=== PATIENT | female | born 1950 | race Caucasian/White ===

== ENCOUNTER 2021-01-31 07:34 | Emergency (ER) | payer OTHER ==
[~2021-01-31] VITALS: Ht 170.2 cm; Wt 72.6 kg
[2021-01-31 08:27] VITALS: BP 149/81
[2021-01-31] MEDS ORDERED: traMADol HCL 50 MG TAB PO ONE (10:45)
[2021-01-31] MEDS ORDERED: methylPREDNISolone SOD SUCC 125 MG/2 ML VL ONE (11:07)
[2021-01-31] MEDS ORDERED: methylPREDNISolone SOD SUCC 125 MG/2 ML VL IM ONE (11:15)
== END 2021-01-31 11:30 | disposition home or self-care (01) ==
LOC: ER 07:34
DX: M16.12 Unilateral primary osteoarthritis, left hip (principal); M47.816 Spondylosis without myelopathy or radiculopathy, lumbar region; E78.5 Hyperlipidemia, unspecified; I10 Essential (primary) hypertension; Z90.89 Acquired absence of other organs; Z90.49 Acquired absence of other specified parts of digestive tract; Z98.51 Tubal ligation status; Z96.641 Presence of right artificial hip joint; W01.0XXA Fall on same level from slipping, tripping and stumbling without subsequent striking against object, initial encounter; Y93.89 Activity, other specified; Y92.89 Other specified places as the place of occurrence of the external cause; Y99.8 Other external cause status
CPT/HCPCS: 72100; 96372; 99283; J2930

== ENCOUNTER 2024-06-05 08:46 | Inpatient (IN) | payer OTHER ==
[~2024-06-05] VITALS: Ht 170.2 cm; Wt 67.2 kg
--- NOTE | 2024-06-05 10:24 | ECG ---
[facility] Test Date: 2024-06-05 Test Time: 08:58:25 Pat Name: LITZY MOREIRA Department: ER Room: [address] [place] [address] Gender: F Early Intervention Specialist: GP : [id number] Requested By: SOUMYA ALAS Order Number: [id number] Reading MD: Davian Fontana Measurements Intervals [place] Rate: 72 P: 37 FL: 126 QRS: 61 QRSD: 88 T: -50 QT: 420 QTc: 460 Interpretive Statements Sinus rhythm Atrial premature complexes Borderline repolarization abnormality Electronically Signed On 06-07-2024 10:25:20 PST by Davian Fontana Please click the below link to view image of tracing.
--- NOTE | 2024-06-05 10:40 | ED.PDOC ---
HPI (NEURO) HPI Comments 74y F who presents to the ED for chief complaint of dizziness. Pt states she has been having dizziness for the past 2 days. Pt states her symptoms 2 days ago after eating dinner and states she normally ambulates on her own but states she has been having multiple falls and has been unsteady on her feet. Pt states her symptoms went away at approx 0300 this AM but states they started back up this AM and pt came to the ED for further evaluation. Pt states she has had associated nausea and vomiting denies any associated diarrhea, fever, dysuria, chest pain, or shortness of breath. Pt denies any associated head injury or loss of consciousness in the past 2 days. Pt denies any other symptoms at this time. Chief Complaint: Dizziness Time Seen by MD: 10:36 Primary Care Provider: SURAJ Lopez Notes: Nurses Notes, Medications, Allergies (No allergies to medications) Information Source: Patient, Spouse Mode of Arrival: Ambulatory Severity: Moderate Dizziness/Weakness Severity: Unable to do activities Headache Severity: None Timing: Days Duration: Since onset Prehospital treatment: None Headache Location: Generalized Weakness Location: Generalized Onset: At rest Circumstances: Spontaneous Symptoms: Imbalance, Weakness History of: Hypertension Modifying factors: Nothing Associated Signs and Symptoms: Nausea, Vomiting Past Medical History PAST MEDICAL HISTORY: Arthritis, GERD, High Lipids, HTN Surgical History: Appendectomy, BTL, Cholecystectomy, Tubal Ligation Surgical History (Other): R hip, bilateral carpal tunnel, CERTIFIED FRAUD EXAMINER History: Denies all CERTIFIED FRAUD EXAMINER Hx Family History Family History: Family hx of DM Social History Smoker: Non-Smoker Alcohol: Occasionally Drugs: Denies Drug Use Lives In: Home Constitutional: denies: chills, diaphoresis, fatigue, fever, malaise, sweats, weakness, others EENTM: denies: blurred vision, double vision, ear bleeding, ear discharge, ear drainage, ear pain, ear ringing, eye pain, eye redness, hearing loss, mouth pain, mouth swelling, nasal discharge, nose bleeding, nose congestion, nose pain, photophobia, tearing, throat pain, throat swelling, voice changes, others Respiratory: denies: cough, hemoptysis, orthopnea, SOB at rest, shortness of breath, SOB with excertion, stridor, wheezing, others Cardiovascular: denies: chest pain, dizzy spells, diaphoresis, Dyspnea on exertion, edema, irregular heart beat, left arm pain, lightheadedness, palpitations, PND, syncope, others Gastrointestinal: denies: abdomen distended, abdominal pain, blood streaked bowels, constipated, diarrhea, dysphagia, difficulty swallowing, hematemesis, melena, nausea, poor appetite, poor fluid intake, rectal bleeding, rectal pain, vomiting, others Genitourinary: denies: abnormal vagina bleeding, burning, dyspareunia, dysuria, flank pain, frequency, hematuria, incontinence, pain, , vagina discharge, urgency, others Neurological: reports: dizziness, weakness; denies: fainting, headache, left sided numbness, left sided weakness, numbness, paresthesia, pre-existing deficit, right sided numbness, right sided weakness, seizure, speech problems, tingling, tremors, others Musculoskeletal: denies: back pain, gout, joint pain, joint swelling, muscle pain, muscle stiffness, neck pain, others Integumetry: denies: bruises, change in color, change in hair/nails, dryness, laceration, lesions, lumps, rash, wounds, others Allergic/Immunocompromised: denies: Difficulty Healing, Frequent Infections, Hives, Itching, others Hematologic/Lymphatic: denies: anemia, blood clots, easy bleeding, easy bruising, swollen glands, others Endocrine: denies: excessive hunger, excessive sweating, excessive thirst, excessive urination, flushing, intolerance to cold, intolerance to heat, unexplained weight gain, unexplained weight loss, others Psychiatric: denies: anxiety, bipolar disorder, depression, hopeless, panic disorder, schizophrenia, sleepless, suicidal, others All Other Systems: Reviewed and Negative Physical Exam General Appearance: Moderate Distress HEENT: Normal ENT Inspection, Pharynx Normal, TMs Normal Neck: Full Range of Motion, Non-Tender, Normal, Normal Inspection Respiratory: Chest Non-Tender, Lungs Clear, No Accessory Muscle Use, No Respiratory Distress, Normal Breath Sounds Cardiovascular: No Edema, No JVD, No Murmur, No Gallop, Normal Peripheral Pulses, Regular Rate/Rhythm Breast Exam: Deferred Gastrointestinal: No Organomegaly, Non Tender, No Pulsatile Mass, Normal Bowel Sounds, Soft Genitalia: Deferred Pelvic: Deferred Rectal: Deferred Extremities: No calf tenderness, Normal capillary refill, Normal inspection, Normal range of motion, Non-tender, No pedal edema Musculoskeletal : Apperance: Normal Neurologic: Alert, clin nurse spec II-XII nml as Tested, Motor Weakness, Normal Affect, Normal Mood, No Sensory Deficits Cerebellar Function: Ataxia Reflexes: Normal Skin: Dry, Normal Color, Warm Lymphatic: No Adenopathy EKG EKG : Pulse Rate (adult): 72 [place]: Normal Cardiac Rhythm: NSR Block: None Hypertrophy: None ST: Normal Was a procedure done? Was a procedure done?: No Differential Diagnosis (SZ) Seizure: N/A General Weakness: Anemia, CVA, Dehydration, Electrolyte imbalance, Encephalopathy, Hypoglycemia, TIA, Vertigo: central, Vertigo: peripheral, V estibular neuronitis Headache: Migraine, Closed Head Injury, Epidural Hemorrhage, Intracerebral Hemorrhage, Subarachnoid Hemorrhage, Sinusitis, Trigeminal Neuralgia X-Ray, Labs, Meds, VS Vital Signs Date Time Temp Pulse Resp B/P (MAP) Pulse Ox O2 Delivery O2 Flow Rate FiO2 06/05/24 10:40 72 06/05/24 10:39 98.0 64 16 148/61 (90) 98 98.0 06/05/24 10:39 64 16 98 Room Air 06/05/24 09:37 98.7 65 17 133/64 (87) 98 98.7 06/05/24 09:37 65 17 98 Room Air 06/05/24 08:58 72 06/05/24 08:50 97.6 66 16 155/71 (99) 100 Lab Test 06/05/24 10:59 06/05/24 10:31 06/05/24 08:58 06/05/24 08:57 Range/Units White Blood Count 5.7 4.4-10.8 10^3/uL Red Blood Count 4.49 4.0-5.20 10^6/uL Hemoglobin 14.1 12.2-16.2 g/dL Hematocrit 41.8 36.0-46.0 % Mean Corpuscular Volume 93.1 80.0-100.0 fL Mean Corpuscular Hemoglobin 31.4 28.0-32.0 pg Mean Corpuscular Hemoglobin Concent 33.8 32.0-36.0 g/dL Red Cell Distribution Width 14.0 11.8-14.3 % Platelet Count 293 140-450 10^3/uL Mean Platelet Volume 7.4 6.9-10.8 fL Neutrophils (%) (Auto) 66.1 37.0-80.0 % Lymphocytes (%) (Auto) 27.2 10.0-50.0 % Monocytes (%) (Auto) 5.8 0.0-12.0 % Eosinophils (%) (Auto) 0.3 0.0-7.0 % Basophils (%) (Auto) 0.6 0.0-2.0 % Neutrophils # (Auto) 3.7 1.6-8.6 10 ^3/uL Lymphocytes # (Auto) 1.5 0.4-5.4 10 ^3/uL Monocytes # (Auto) 0.3 0-1.3 10 ^3/uL Eosinophils # (Auto) 0 0-0.8 10 ^3/uL Basophils # (Auto) 0 0-0.2 10 ^3/uL Nucleated Red Blood Cells 0.0 % Sodium Level 142 136-145 mmol/L Potassium Level 4.3 3.5-5.1 mmol/L Chloride Level 108 H 98-107 mmol/L Carbon Dioxide Level 30 20-31 mmol/L Anion Gap 4 L 5-15 Blood Urea Nitrogen 13 9-23 mg/dL Creatinine 0.83 0.550-1.02 mg/dL Glomerular Filtration Rate Calc 74 >90 mL/min BUN/Creatinine Ratio 15.7 10.0-20.0 Serum Glucose 108 H 74-106 mg/dL Calcium Level 10.3 8.7-10.4 mg/dL SARS-CoV-2 Antigen (Rapid) Negative NEGATIVE Urine Color Colorless Yellow Urine Clarity Clear Clear Urine pH 6.5 5.0-9.0 Urine Specific [place] 1.011 1.001-1.035 Urine Protein Negative Negative Urine Ketones Negative Negative Urine Blood Negative Negative /uL Urine Nitrite Negative Negative Urine Bilirubin Negative Negative Urine Urobilinogen Normal Negative mg/dL Urine Leukocyte Esterase Negative Negative /uL Urine RBC 1 0 - 4 /hpf Urine WBC <1 0 - 5 /hpf Urine Squamous Epithelial Cells Few <5 /hpf Urine Bacteria None seen None Seen /hpf Urine Glucose Normal Normal mg/dL POC Glucose 102 70-106 mg/dl Current Medications Medications (Trade) Dose Ordered Sig/Cornelia Route Start Time Stop Time Status Last Admin Aspirin (Ecotrin Enteric Coated Tablet) 81 mg ONCE ONCE PO 06/05/24 14:15 06/05/24 14:22 DC 06/05/24 15:13 EXAM: CT HEAD WITHOUT CONTRAST IMPRESSION: 1. No acute intracranial process. IV Hep-Lock was established The patient was given aspirin 81 mg by mouth The urine test is negative infection The CBC is within normal limits The chemistry panel is within limits We contacted the hospitalist and he is admitting the patient at this time We have discussed the findings with the patient and her family member Images Reviewed?: Images reviewed and evaluated by me Time of 1ST Reevaluation: 11:10 Reevaluation 1ST: Unchanged Patient Education/Counseling: Diagnosis, Treatment, Prognosis Family Education/Counseling: Diagnosis, Treatment, Prognosis Additional Information I reviewed the following notes from patient's past medical encounters: The following tests were ordered, and results were reviewed by me: EKG x2 , CBC, UA, BMP, CT head without contrast, COVED test Additional Information was gathered from interviewing the following independent historians: spouse I reviewed and agreed with the following test results read by other providers: radiologist I discussed treatment and results with medical personnel and: none Departure 1 Departure Time of Disposition: 15:53 Impression: Primary Impression: Autonomic dysfunction Disposition: ADMITTED INPATIENT Admit to: Tele Condition: Fair Critical Care Note Critical Care Time?: Yes (45 min-critical care time only) Stability Stability form required: Yes Unstable for transfer: Telemetry monitoring (Telemetry monitoring required), ED Physician Assesment (Clinical assesment) Heart Score Heart Score: Heart Score Response (Comments) Value History N/A 0 EKG N/A 0 Age N/A 0 Risk Factors N/A 0 Troponin N/A 0 Total 0 I personally scribed for LALA KRUSE MD ([email or web address]) on 06/05/24 at 10:40. Electronically submitted by Sweta Read ([facility] I personally scribed for LALA KRUSE MD (HILARIA) on 06/05/24 at 11:05. Electronically submitted by Sweta Read ([facility]). I personally scribed for LALA KRUSE MD ([email or web address]) on 06/05/24 at 11:06. Electronically submitted by Sweta Read ([email or web address]). LALA KRUSE MD Jun 05, 2024 10:40
--- NOTE | 2024-06-05 11:01 | DVH ---
EXAM: CT HEAD WITHOUT CONTRAST HISTORY: DIZZINESS COMPARISON: None TECHNIQUE: Axial images of the head were obtained and reformatted in coronal and sagittal planes. All CT scans at this medical facility are performed using dose modulation techniques as appropriate t o a performed exam including the following: Automated exposure control was utilized; adjustment of th e MA and/or KV according to patient size; and use of iterative reconstruction technique. CT Dose: CTDI volume is 54 mGy. Dose-length product is 1072 mGy*cm FINDINGS: There is no evidence of acute intracranial hemorrhage, mass, mass effect midline shift. There is no h ydrocephalus or extra-axial fluid collection. Fall-white matter differentiation is maintained. The visualized paranasal sinuses and mastoid air cells are clear. The calvarium is intact. IMPRESSION: 1. No acute intracranial process. HS:Y
[2024-06-05 11:07] LABS: Urine Bacteria None Seen /hpf (None Seen)
[2024-06-05 11:15] LABS: Urine Blood Negative /uL (Negative); Urine Clarity Clear (Clear); Urine Color Colorless (Yellow); Urine Protein, UAD Negative (Negative); Urine Specific Gravity 1.011 (1.001-1.035); Urine Urobilinogen Normal (Negative); Urine WBC <1 /hpf (0 - 5); Urine pH 6.5 (5.0-9.0)
[2024-06-05 11:26] LABS: Basophils # (auto) 0 10 ^3/uL (0-0.2); Basophils % (auto) 0.6 % (0.0-2.0); Eosinophils # (auto) 0 10 ^3/uL (0-0.8); Eosinophils % (auto) 0.3 % (0.0-7.0); Hematocrit 41.8 % (36.0-46.0); Hemoglobin 14.1 g/dL (12.2-16.2); Lymphocytes # (auto) 1.5 10 ^3/uL (0.4-5.4); Lymphocytes % (auto) 27.2 % (10.0-50.0); Mean Corpuscular Hemoglobin 31.4 pg (28.0-32.0); Mean Corpuscular Hgb Conc. 33.8 g/dL (32.0-36.0); Mean Corpuscular Volume 93.1 fL (80.0-100.0); Monocytes # (auto) 0.3 10 ^3/uL (0-1.3); Monocytes % (auto) 5.8 % (0.0-12.0); Neutrophils # (auto) 3.7 10 ^3/uL (1.6-8.6); Neutrophils % (auto) 66.1 % (37.0-80.0); Platelet Count (auto) 293 10^3/uL (140-450); Red Blood Cells 4.49 10^6/uL (4.0-5.20); White Blood Cell 5.7 10^3/uL (4.4-10.8)
[2024-06-05 11:30] LABS: Potassium 4.3 mmol/L (3.5-5.1); Sodium 142 mmol/L (136-145)
[2024-06-05 11:31] LABS: Anion Gap 4 (5-15); Carbon Dioxide 30 mmol/L (20-31)
[2024-06-05 11:32] LABS: Calcium 10.3 mg/dL (8.7-10.4)
[2024-06-05 11:36] LABS: BUN/Creatinine Ratio 15.7 (10.0-20.0); Blood Urea Nitrogen 13 mg/dL (9-23); Chloride 108 mmol/L (98-107)
[2024-06-05 11:57] LABS: COVID19 ANTIGEN SOFIA FIA NEGATIVE (NEGATIVE)
[2024-06-05 11:58] LABS: Glucose 108 mg/dL (74-106)
[2024-06-05] MEDS ORDERED: NITROGLYCERIN 0.4 MG SL TAB SL PRN (14:15)
[2024-06-05] MEDS ORDERED: ONDANSETRON HCL 4 MG/2 ML VIAL IV PRN (14:15)
[2024-06-05] MEDS ORDERED: MORPHINE SULFATE INJ 2 MG/ml SYRG IV PRN ×2 (14:15)
[2024-06-05] MEDS: ASPirin-EC 81 mg tab PO ONE (15:13)
--- NOTE | 2024-06-05 15:16 | DVH ---
EXAM: MRI BRAIN HEAD WO CONTRAST HISTORY: Dizziness/unsteady gait COMPARISON: CT HEAD WITHOUT CONTRAST on DOS: 06/05/24 TECHNIQUE: MRI was performed utilizing multiple appropriate imaging planes and pulse sequences. FINDINGS: SUPRATENTORIAL REGION: No evidence for acute ischemia or intracranial hemorrhage. Scattered ill-defi emy FLAIR hyperintensities are noted within the bilateral periventricular region, crespo radiata and subcortical white matter. POSTERIOR FOSSA: Unremarkable. BRAINSTEM: Few subcentimeter T2 and FLAIR hyperintense foci are seen in [place] without restricted diff usion likely chronic microvascular ischemic changes. SELLAR/SUPRASELLAR REGION: Unremarkable. VENTRICLES, CISTERNS, SULCI: Age-appropriate. ORBITS: Unremarkable. PARANASAL SINUSES: Unremarkable. MASTOID AIR CELLS: Unremarkable. VASCULATURE: Unremarkable. BONES/ SOFT TISSUES: Unremarkable. OTHER: None. IMPRESSION: 1. No acute intracranial process identified. 2. Mild chronic microvascular ischemic changes.
[2024-06-05 16:50] LABS: Rapid Influenza A Negative (Negative); Rapid Influenza B Negative (Negative)
[2024-06-05 19:45] VITALS: RESP 16; O2SAT 97
[2024-06-05] MEDS: ATORVASTATIN 20 MG TAB PO SCH (21:35)
[2024-06-06] VITALS (9 sets, daily range): BP systolic 126–149; BP diastolic 46–71; PULSE 55–96; RESP 14–19; TEMP 97.8–99.4; O2SAT 95–98
--- NOTE | 2024-06-06 02:25 | DVHHP2 ---
GWEN DIAZ [employer]EN[employer]STRU[employer] 06/06/24 0225: History of Present Illness Reason for Visit: Dizziness History of Present Illness 74-year-old female Presents with complaints of dizziness times two days. Patient and she has normally able to ambulate independently. Patient denies try new medication. There are no complaints of fevers, chills, unilateral deficits, Shortness of breath, Chest pain, nausea, vomiting, Diarrhea Cardiovascular: HTN Smoke: No ALCOHOL: none Drugs: None Lives: with Family Review of Systems Constitutional: Yes: Weakness, Other (Dizziness); No: Fever, Chills, Sweats, Malaise Eyes: No: Pain, Vision change, Conjunctivae inflammation, Eyelid inflammation, Other, Redness ENT: No: Ear pain, Ear discharge, Nose pain, Nose discharge, Nose congestion, Mouth pain, Mouth swelling, Throat pain, Throat swelling, Other Respiratory: No: Cough, Dry, Shortness of breath, SOB with excertion, Wheezing, Hemoptysis, Pleuritic Pain, Sputum, Wheezing, Other Cardiovascular: No: Chest Pain, Palpitations, Orthopnea, Paroxysmal Noc. Dyspnea, Edema, Lt Headedness, Other Gastrointestinal: No: Nausea, Vomiting, Abdominal Pain, Diarrhea, Constipation, Melena, Hematochezia, Other Genitourinary: No Dysuria, No Frequency, No Incontinence, No Hematuria, No Retention, No Other Musculoskeletal: No: other, neck pain, shoulder pain, arm pain, back pain, hand pain, leg pain, foot pain Skin: No: Rash, Lesions, Jaundice, Bruising, Other Neurological: Incoordination; No: Weakness, Numbness, Change in speech, Confusion, Seizures, Other Allergies: Coded Allergies: NO KNOWN ALLERGIES (Unverified , 01/31/21) Medications Current Medications Medications Dose Ordered Sig/Cornelia Route Start Time Stop Time Status Last Admin Dose Admin Nitroglycerin 0.4 mg Q5MINP PRN SL 06/05/24 14:15 Morphine Sulfate 2 mg Q30M PRN IV 06/05/24 14:15 Aspirin 81 mg DAILY PO 06/06/24 10:00 Atorvastatin Calcium 20 mg HS PO 06/05/24 22:00 06/05/24 21:35 20 MG Ondansetron HCl 4 mg Q4HPRN PRN IV 06/05/24 14:15 Morphine Sulfate 2 mg Q4HPRN PRN IV 06/05/24 14:15 Famotidine 20 mg DAILY PO 06/06/24 10:00 Enoxaparin Sodium 40 mg DAILY SC 06/06/24 10:00 Exam Vital Signs Vital Signs Date Time Temp Pulse Resp B/P (MAP) Pulse Ox O2 Delivery O2 Flow Rate FiO2 06/05/24 23:00 98.7 68 18 149/68 (95) 97 98.7 06/05/24 19:45 Room Air* 0 21 General Appearance: Alert, Oriented X3, Cooperative, No acute distress HEENT: Atraumatic, PERRLA, EOMI Respiratory: Clear to auscultation, Normal air movement Cardiovascular: Regular rate, Normal S1, Normal S2 Abdominal: Normal bowel sounds, Soft, No tenderness Extremities: No clubbing, No cyanosis, No edema Skin: No rashes, No breakdown Neuro: Normal speech Psych/Mental Status: Mental status NL, Mood NL Labs/Xrays Labs Test 06/05/24 14:58 06/05/24 10:59 06/05/24 10:31 06/05/24 08:58 Range/Units Influenza Type A Antigen Negative Negative Influenza Type B Antigen Negative Negative White Blood Count 5.7 4.4-10.8 10^3/uL Red Blood Count 4.49 4.0-5.20 10^6/uL Hemoglobin 14.1 12.2-16.2 g/dL Hematocrit 41.8 36.0-46.0 % Mean Corpuscular Volume 93.1 80.0-100.0 fL Mean Corpuscular Hemoglobin 31.4 28.0-32.0 pg Mean Corpuscular Hemoglobin Concent 33.8 32.0-36.0 g/dL Red Cell Distribution Width 14.0 11.8-14.3 % Platelet Count 293 140-450 10^3/uL Mean Platelet Volume 7.4 6.9-10.8 fL Neutrophils (%) (Auto) 66.1 37.0-80.0 % Lymphocytes (%) (Auto) 27.2 10.0-50.0 % Monocytes (%) (Auto) 5.8 0.0-12.0 % Eosinophils (%) (Auto) 0.3 0.0-7.0 % Basophils (%) (Auto) 0.6 0.0-2.0 % Neutrophils # (Auto) 3.7 1.6-8.6 10 ^3/uL Lymphocytes # (Auto) 1.5 0.4-5.4 10 ^3/uL Monocytes # (Auto) 0.3 0-1.3 10 ^3/uL Eosinophils # (Auto) 0 0-0.8 10 ^3/uL Basophils # (Auto) 0 0-0.2 10 ^3/uL Nucleated Red Blood Cells 0.0 % Sodium Level 142 136-145 mmol/L Potassium Level 4.3 3.5-5.1 mmol/L Chloride Level 108 H 98-107 mmol/L Carbon Dioxide Level 30 20-31 mmol/L Anion Gap 4 L 5-15 Blood Urea Nitrogen 13 9-23 mg/dL Creatinine 0.83 0.550-1.02 mg/dL Glomerular Filtration Rate Calc 74 >90 mL/min BUN/Creatinine Ratio 15.7 10.0-20.0 Serum Glucose 108 H 74-106 mg/dL Calcium Level 10.3 8.7-10.4 mg/dL SARS-CoV-2 Antigen (Rapid) Negative NEGATIVE Urine Color Colorless Yellow Urine Clarity Clear Clear Urine pH 6.5 5.0-9.0 Urine Specific [place] 1.011 1.001-1.035 Urine Protein Negative Negative Urine Ketones Negative Negative Urine Blood Negative Negative /uL Urine Nitrite Negative Negative Urine Bilirubin Negative Negative Urine Urobilinogen Normal Negative mg/dL Urine Leukocyte Esterase Negative Negative /uL Urine RBC 1 0 - 4 /hpf Urine WBC <1 0 - 5 /hpf Urine Squamous Epithelial Cells Few <5 /hpf Urine Bacteria None seen None Seen /hpf Urine Glucose Normal Normal mg/dL Test 06/05/24 08:57 Range/Units POC Glucose 102 70-106 mg/dl Assessment/Plan Assessment/Plan Dizziness Hypertension Plan Admit telemetry Cardiology consult. echocardiogram. Orthostatic vital signs. As needed and hypertensive for optimal BP management MRI brain. MRA neck. GI ppx pepcid / DVT ppx lovenox Plan discussed with: Patient My Orders Orders - GWEN DIAZ NP Procedure Category Date Status Time Mra Angio Of Neck MRI 06/05/24 Logged 21:07 Orthostatic Vital ORDERS 06/05/24 Transmitted Signs 21:07 Date of Service: Jun 06, 2024 Billing Provider: KATRIN DAHL MD Common Visit Codes: NOT BILLABLE KATRIN DAHL MD 06/13/24 1233: Review of Systems Allergies: Coded Allergies: NO KNOWN ALLERGIES (Unverified , 01/31/21) Additional Comments Additional Comments Additional Comments Patient's chart is reviewed and discussed with the nurse practitioner. I agree with the nurse practitioner's evaluation, documentation, assessment and care plan as outlined. GWEN DIAZ NP Jun 06, 2024 02:25 KATRIN DAHL MD Jun 13, 2024 12:33
[2024-06-06] MEDS ORDERED: ATOR10TA52 PO (06:59)
[2024-06-06] MEDS ORDERED: OMEP20TA PO (06:59)
[2024-06-06] MEDS ORDERED: MAGN400T40 PO (06:59)
[2024-06-06] MEDS ORDERED: ZINC100T5 PO (07:00)
[2024-06-06] MEDS ORDERED: CHOL20007 PO (07:00)
--- NOTE | 2024-06-06 09:57 | DVH ---
PROCEDURE: MRI MRA ANGIO OF NECK INDICATION: dizziness 06/06/2024 08:34 AM COMPARISON: None TECHNIQUE: MRA neck without intravenous contrast. 3D image postprocessing was performed on a dedicated workstat ion and images were used for interpretation and reporting. FINDINGS: The visualized thoracic aortic arch and proximal great vessels are unremarkable. There is no evidence of hemodynamically significant stenosis involving the bilateral common and inter nal carotid arteries. Visualized intracranial internal carotid arteries are patent. The cervical vertebral arteries are patent. There is no evidence of dissection. IMPRESSION: 1. No evidence of hemodynamically significant cervical stenosis or dissection.
[2024-06-06] MEDS: ENOXAPARIN SOD 40 MG/0.4 ML SYRINGE SC SCH (10:07)
[2024-06-06] MEDS: ASPirin-EC 81 mg tab PO SCH (10:07)
[2024-06-06] MEDS: FAMOTIDINE 20 MG TAB PO SCH (10:08)
--- NOTE | 2024-06-06 13:22 | DVHSR ---
APPROVED REPORT EXAM: Two-dimensional and M-mode echocardiogram with Doppler and color Doppler. INDICATION Tachycardia RISK FACTORS Height: 5'7", Weight: 111 DIMENSIONS LVDd4.9 (3.8-5.7cm)LA (2D)3.9 (1.9-4.0cm)Aortic Root (2.0-3.7cm) LVDs3.3 (2.5-4.0cm)LA (MM) (1.9-4.0cm)Aortic Cusp Exc (1.5-2.0cm) EF (%) 60.0 (55-70%)Rt. Atrium3.3 (1.9-4.0cm)Asc. Aorta cm Mitral Valve MitralMitral Stenosis E/A ratio0.02D MVAcm2 LEFT VENTRICLE The left ventricle is normal size. There is normal left ventricular wall thickness. The left ventricle is normal in structure and function. The Ejection Fraction is 55-60%. No regional wall motion abnormalities noted. RIGHT VENTRICLE The right ventricle is normal size. There is normal right ventricular wall thickness. The right ventricular systolic function is normal. ATRIA The left atrium size is normal. The right atrium size is normal. The interatrial septum is intact with no evidence for an atrial septal defect. MITRAL VALVE The mitral valve is normal in structure and function. There is no evidence of mitral valve prolapse. There is no mitral valve stenosis. There is no mitral valve regurgitation noted. PULMONIC VALVE The pulmonary valve is normal in structure and function. There is no pulmonic valvular regurgitation. There is no pulmonic valvular stenosis. TRICUSPID VALVE The tricuspid valve is normal in structure and function. There is no tricuspid valve regurgitation noted. There is no tricuspid valve prolapse or vegetation. There is no tricuspid valve stenosis. AORTIC VALVE The aortic valve is normal in structure and function. No aortic regurgitation is present. There is no aortic valvular stenosis. There is no aortic valvular vegetation. GREAT VESSELS The aortic root is normal in size. PERICARDIAL EFFUSION There is a no pericardial effusion. Other Information Quality : Technically LimitedRhythm : Technically limited study due to body habitus and patient position. Conclusion The left ventricle is normal size. The left ventricle is normal in structure and function. The Ejection Fraction is 55-60%. There is no gross valvular pathology. There is a no pericardial effusion.
--- NOTE | 2024-06-06 14:25 | DVHINCON2 ---
DATE OF CONSULTATION: 06/06/2024 REFERRING PHYSICIAN: Dr. Benjy Patterson. CONSULTING PHYSICIAN: Dr. De La Rosa. INDICATION: Dizziness. HISTORY OF PRESENT ILLNESS: The patient is a 74-year-old female with a history of dyslipidemia, who presented to the hospital with complaints of on and off dizzy spells. The patient stated that about 2 days ago she started out with feeling dizzy, some spinning sensation, nausea, vomiting, decided to come to the Emergency Room. Workup for stroke has been unremarkable thus far. The patient denies prior history of heart disease. Tele monitor did not show any significant arrhythmia as such. The patient stated that she ambulated today with physical therapy and felt well. She was experiencing spinning sensation while she was getting MRI of brain earlier today. PAST MEDICAL HISTORY: Dyslipidemia. MEDICATIONS: Per med rec. ALLERGIES: No known drug allergies. PHYSICAL EXAMINATION: GENERAL: Alert and awake, in no form of cardiopulmonary distress. VITAL SIGNS: Blood pressure 126/63, pulse 63 per minute, saturation 95%. HEENT: No carotid bruits. No jugular venous distention. CHEST: Bilateral air entry. CARDIOVASCULAR: Precordial and carotid pulses palpable. Normal S1, S2. Regular rate and rhythm. EXTREMITIES: No peripheral edema. DIAGNOSTIC DATA: CBC is normal. Sodium 142, potassium 4.3, creatinine 0.8. ASSESSMENT: * Dizziness of unclear etiology. * Vertigo. * Dyslipidemia. RECOMMENDATIONS: * Trial of meclizine 25 mg twice a day. * Monitor electrolytes closely. * Keep potassium above 4 and magnesium above 2. * Hydrate well. * We will review echo. * If echo unremarkable, no further inpatient cardiac workup indicated. Thank you for allowing me to participate in the care of this patient. MD EDWIGE Stacy/ZACKERY TID: [id number] RECEIPT: [id number]
[2024-06-06] MEDS: MECLIZINE HCL 25 MG TAB PO SCH (15:47)
[2024-06-06] MEDS ORDERED: MECL12.586 PO (17:52)
--- NOTE | 2024-06-06 17:53 | DVHDS2 ---
Discharge Summary Date of Admission Jun 05, 2024 at 14:15 Date of Discharge: Jun 06, 2024 Labs/Diagnostic Data: Laboratory Results Test 06/05/24 14:58 06/05/24 10:59 06/05/24 10:31 06/05/24 08:58 Influenza Type A Antigen Negative (Negative) Influenza Type B Antigen Negative (Negative) White Blood Count 5.7 10^3/uL (4.4-10.8) Red Blood Count 4.49 10^6/uL (4.0-5.20) Hemoglobin 14.1 g/dL (12.2-16.2) Hematocrit 41.8 % (36.0-46.0) Mean Corpuscular Volume 93.1 fL (80.0-100.0) Mean Corpuscular Hemoglobin 31.4 pg (28.0-32.0) Mean Corpuscular Hemoglobin Concent 33.8 g/dL (32.0-36.0) Red Cell Distribution Width 14.0 % (11.8-14.3) Platelet Count 293 10^3/uL (140-450) Mean Platelet Volume 7.4 fL (6.9-10.8) Neutrophils (%) (Auto) 66.1 % (37.0-80.0) Lymphocytes (%) (Auto) 27.2 % (10.0-50.0) Monocytes (%) (Auto) 5.8 % (0.0-12.0) Eosinophils (%) (Auto) 0.3 % (0.0-7.0) Basophils (%) (Auto) 0.6 % (0.0-2.0) Neutrophils # (Auto) 3.7 10 ^3/uL (1.6-8.6) Lymphocytes # (Auto) 1.5 10 ^3/uL (0.4-5.4) Monocytes # (Auto) 0.3 10 ^3/uL (0-1.3) Eosinophils # (Auto) 0 10 ^3/uL (0-0.8) Basophils # (Auto) 0 10 ^3/uL (0-0.2) Nucleated Red Blood Cells 0.0 % Sodium Level 142 mmol/L (136-145) Potassium Level 4.3 mmol/L (3.5-5.1) Chloride Level 108 mmol/L (98-107) Carbon Dioxide Level 30 mmol/L (20-31) Anion Gap 4 (5-15) Blood Urea Nitrogen 13 mg/dL (9-23) Creatinine 0.83 mg/dL (0.550-1.02) Glomerular Filtration Rate Calc 74 mL/min (>90) BUN/Creatinine Ratio 15.7 (10.0-20.0) Serum Glucose 108 mg/dL (74-106) Calcium Level 10.3 mg/dL (8.7-10.4) SARS-CoV-2 Antigen (Rapid) Negative (NEGATIVE) Urine Color Colorless (Yellow) Urine Clarity Clear (Clear) Urine pH 6.5 (5.0-9.0) Urine Specific [place] 1.011 (1.001-1.035) Urine Protein Negative (Negative) Urine Ketones Negative (Negative) Urine Blood Negative /uL (Negative) Urine Nitrite Negative (Negative) Urine Bilirubin Negative (Negative) Urine Urobilinogen Normal mg/dL (Negative) Urine Leukocyte Esterase Negative /uL (Negative) Urine RBC 1 /hpf (0 - 4) Urine WBC <1 /hpf (0 - 5) Urine Squamous Epithelial Cells Few /hpf (<5) Urine Bacteria None seen /hpf (None Seen) Urine Glucose Normal mg/dL (Normal) Test 06/05/24 08:57 POC Glucose 102 mg/dl (70-106) Other Laboratory Tests 06/05/24 10:59 Final Diagnosis/Problems List Vertigo Discharge Disposition: Home Discharge Instruct/Medications Diet: Consistent carbohydrate, Cardiac 2g Na,low cholest Activity: No Restrictions, As Tolerated Follow Up/Referral: PCP next week for dizziness/vertigo Medications: as prescribed and home medications per dc list Discharge Statement: "Patient was advised to return to the ER or call 911 if any headaches, dizziness, shortness of breath, chest pain, abdominal pain, bleeding, fevers, or worsening of medical condition. Patient was counseled about treatment plan, medications, possible side effects, patientverbalized understanding. All questions were answered to the best of my ability. This discharge took greater then 30 minutes in planning, reviewing documentation, counseling the patient, and discussing with other team members." ASSESSMENT ASSESSMENT Assessment Vertigo KATRIN DAHL MD Jun 06, 2024 17:53
== END 2024-06-06 20:15 | disposition home health service (06) | DRG 149 ==
LOC: ER 08:51 → DOU IN ICU 14:15 → TELE 15:40 → TELE-E-ADS 23:17
PROVIDERS: ADMIT Hospitalist; ATTEND Hospitalist
DX: H81.10 Benign paroxysmal vertigo, unspecified ear (principal); I10 Essential (primary) hypertension; E78.5 Hyperlipidemia, unspecified; K21.9 Gastro-esophageal reflux disease without esophagitis; Z20.822 Contact with and (suspected) exposure to COVID-19; Z90.49 Acquired absence of other specified parts of digestive tract; Z83.3 Family history of diabetes mellitus; Z98.51 Tubal ligation status
CPT/HCPCS: 36415; 70450; 70547; 70551; 80048; 81001; 82962; 85025; 87426; 87804; 93005; 93306; 97163; 99291; G0378